=== PATIENT | female | born 1995 | race Caucasian/White ===

== ENCOUNTER 2020-06-18 21:43 | Emergency (ER) | payer BC, OTHER ==
[~2020-06-18] VITALS: Ht 167.6 cm; Wt 49.9 kg
--- NOTE | 2020-06-18 21:48 | NUR ---
PT BIBRA FROM HOME C/O VISUAL HALLUCINATIONS OF SHADOWS ATTACKING HER. PT DENIES SI/HI. PT ADMITS TO SMOKING MARIJUANA AND DRINKIKNG ALCOHOL. PT COOPERATIVE, AAOX4, RESPIRATIONS EVEN AND UNLABORED ON RA W/ NAD NOTED. PT CONNECTED TO THE BELT GLASS SANDER AND POX
--- NOTE | 2020-06-18 22:01 | NUR ---
URINE COLLECTED AND SENT TO LAB
[2020-06-18 22:24] LABS: APPEARANCE,URINE Clear (CLEAR); BILIRUBIN,URINE Negative (NEGATIVE); BLOOD, URINE Negative Ery/uL (NEGATIVE); COLOR,URINE Yellow (YELLOW); LEUKOCYTE ESTERASE ,URINE Negative (NEGATIVE); NITRITE, URINE Negative (NEGATIVE); PH,URINE 6.5 (5.0-8.0); PROTEIN,URINE Negative (NEGATIVE); UGLUCOSE Negative (NEGATIVE); UROBILINOGEN,URINE 0.2 EU/dL (0.2)
--- NOTE | 2020-06-18 22:24 | NUR ---
PRISM MEASURER AT BEDSIDE
[2020-06-18 22:35] LABS: BASOPHILS % (AUTO) 0.4 % (0.0-2.0); EOSINOPHILS % (AUTO) 0.6 % (0.0-6.0); HEMATOCRIT 38 % (33-45); HEMOGLOBIN 13.3 g/dL (11.5-14.8); LYMPHOCYTES # (AUTO) 1.6 /CMM (0.8-4.8); LYMPHOCYTES % (AUTO) 23.6 % (20.0-44.0); MEAN CORPUSCULAR HGB CONC 35 g/dl (31.0-36.0); MEAN CORPUSCULAR VOLUME 96 fL (82-100); MONOCYTES # (AUTO) 0.6 /CMM (0.1-1.30); MONOCYTES % (AUTO) 8.1 % (2.0-12.0); NEUTROPHILS # (AUTO) 4.6 /CMM (1.8-8.9); NEUTROPHILS % (AUTO) 67.3 % (43.0-81.0); PLATELET COUNT (AUTO) 291 /CMM (150-450); RED BLOOD CELL COUNT(AUTO) 4.01 MIL/uL (4.0-5.2); WHITE BLOOD COUNT (AUTO) 6.9 K/uL (4.3-11.0)
[2020-06-18 22:43] LABS: BACTERIA,URINE Few /HPF (None Seen); RBC,URINE 0-2 /HPF (0-2); SQUAMOUS EPITHELIAL CELL,UR Few /HPF (None Seen); WBC,URINE 0-2 /HPF (0-3)
[2020-06-18 22:44] LABS: CALCIUM, SERUM 8.7 mg/dL (8.5-10.1); CARBON DIOXIDE 27 mmol/L (21-32); CHLORIDE 102 mmol/L (98-107); CREATININE 0.6 mg/dL (0.6-1.3); GLUCOSE 93 mg/dL (74-106); POTASSIUM 3.4 mmol/L (3.5-5.1); SODIUM SERUM 137 mmol/L (136-145); UREA NITROGEN, BLOOD 9 mg/dL (7-18)
[2020-06-18 22:49] LABS: ALANINE AMINOTRANSFERASE 30 U/L (12-78); ALBUMIN 3.5 g/dL (3.4-5.0); ALCOHOL, BLOOD < 3 mg/dL (0-0); ALKALINE PHOSPHATASE 39 U/L (46-116); ASPARTATE AMINOTRANSFERASE 26 U/L (15-37); BILIRUBIN,DIRECT 0.2 mg/dL (0.0-0.2); BILIRUBIN,TOTAL 0.5 mg/dL (0.2-1.0); TOTAL PROTEIN, SERUM 7.1 g/dL (6.4-8.2)
[2020-06-18 22:50] LABS: ACETAMINOPHEN 0 ug/ml (10-30)
--- NOTE | 2020-06-19 00:09 | NUR ---
PT WANDERING AROUND ER. PT REORIENTED TO ROOM. SITTER AT BEDSIDE
--- NOTE | 2020-06-19 00:33 | NUR ---
spoke to pt [facility], agreed to picking belt operator when pt is sober. call back [phone]
--- NOTE | 2020-06-19 04:53 | NUR ---
Patient is resting comfortably in bed with eyes closed. Easily aroused. VSS
--- NOTE | 2020-06-19 05:35 | NUR ---
PT ROADTESTED. PT AMBULATORY W/ STAEADY GAIT.
--- NOTE | 2020-06-19 05:38 | NUR ---
CALLED [facility] INVENTORY AUDIT CLERKARMIN. LEFT A VOICEMAIL
--- NOTE | 2020-06-19 05:55 | NUR ---
called [facility], EX [phone]. left voice mail.
--- NOTE | 2020-06-19 06:12 | NUR ---
Patient discharged to home in stable condition. Written and verbal after care instructions given. Patient verbalizes understanding of instruction.
[2020-06-19 06:13] VITALS: BP 125/76
== END 2020-06-19 06:13 | disposition home or self-care (01) ==
LOC: ER 21:46
DX: F19.10 Other psychoactive substance abuse, uncomplicated (principal); R44.3 Hallucinations, unspecified
CPT/HCPCS: 36415; 80048-TC; 80076-TC; 81000-TC; 84703-TC; 85025-TC; G0480